=== PATIENT | female | born 1985 | race Caucasian/White ===

== ENCOUNTER 2022-08-24 20:25 | Emergency (ER) | payer OTHER ==
--- OUTSIDE RECORDS SUMMARY | 2022-08-24 20:29 | XMS REPORT | Continuity of Care Document ---
:1985 Author Organization [facility] t Address [address] [facility] [address] [place] [address] Care Team Providers Name Role Phone JING SPARROW Primary Care Physician Unavailable Jing Sparrow Attending Clinician Unavailable DELVIN BURKS Attending Clinician Unavailable Adriana Jones Attending Clinician Lab, Ang - [place] Attending Clinician Unavailable ADRIANA SALMON Attending Clinician Unavailable SCOTT TENORIO Attending Clinician Unavailable SCOTT TENORIO Attending Clinician Unavailable Scott Tenorio MD Attending Clinician UNKNOWN, ATTENDING Attending Clinician Unavailable Unknown, Attending Attending Clinician Unavailable Doctor Unassigned, [place] Attending Clinician Unavailable GUILLERMO VAIL M.D., GUILLERMO Franklin M.D. Attending Clinician Unavailable OSEI ORELLANA Admitting Clinician Unavailable GUILLERMO VAIL M.D., GUILLERMO Franklin Admitting Clinician Josefina garcia Payers Payer Name Policy Type Policy Number Effective Date Expiration Date S [facility] MEDIC[facility] PART A [id number] 2014 \T\ B 00:00:00 [facility] [id number] 2016 MEDICAID 00:00:00 MEDICAID OF [place] [id number] 2015 2021 00:00:00 00:00:00 Problems Condition Condition Condition Status Onset Resolution Last Treating Co mments Source Name Details Category Date Date Treatment Clinician Date Prediabete Prediabete Disease Active U rachana s s 6 ity of 00:00: [address] Hyperinsul Hyperinsul Disease Active U nivers inemia inemia 6- ity of 00:00: [place] 00 [facility] Morbid Morbid Disease Active Univers obesity obesity 10-24 ity of with BMI with BMI 00:00: [place] of of 00 Medical 50.0-59.9, 50.0-59.9, Br anch adult adult No known No known Disease Unive rs active active ity of problems problems [facility] [place] [facility] Reflux Reflux Diagnosis Active Common esophagiti esophagiti Sp fredi s s - [facility] Hyperlipid Hyperlipid Problem Active C ommon emia, emia, Spirit unspecifie unspecifie - [facility] d [facility] hyperlipid hyperlipid Teri [facility] emia type emia type [facility] Essential Essential Problem Active Com mon (primary) (primary) Spir it hypertensi hypertensi - [facility] on on [facility] Bipolar Bipolar Problem Active Common affective affective Spir it disorder, disorder, - CH I current current St episode episode [facility] mixed, mixed, Medical without without Center psychotic psychotic features features Cigarette Cigarette Problem Active Com mon nicotine nicotine Spirit dependence dependence - [facility] without without St complicati complicati Teri kes on on [facility] Schizo Schizo Problem Active Common affective affective Spir it schizophre schizophre - [facility] cee cee [facility] Obesities, Obesities, Problem Active C ommon morbid morbid Spirit - [facility] Allergies, Adverse Reactions, Alerts Allergy Allergy Status Severity Reaction(s) Onset Inactive Treating Comm ents Source Name Type Date Date Clinician NO KNOWN Drug Active Univers ALLERGIE Class ity of S [facility] [place] [facility] Social History Social Habit Start Date Stop Date Quantity Comments Source Alcohol intake 2021-10-24 2021-10-24 Ex-drinker University 00:00:00 00:00:00 (finding) [facility] [place] [facility] Exposure to 2021-10-10 2021-10-20 Not sure [facility] SARS-CoV-2 (event) 00:00:00 08:59:00 [facility] [place] [facility] Cigarettes smoked 2021-09-23 2021-09-23 Univers ity of current (pack per 00:00:00 00:00:00 ) - Reported Branch Cigarette 2021-09-23 2021-09-23 University of pack-years 00:00:00 00:00:00 [facility] [place] [facility] Tobacco use and 2021-09-23 2021-09-23 Never used Universit y of exposure 00:00:00 00:00:00 [facility] [place] [facility] Sex Ass[birth year] At [birth year] Universit y of 00:00:00 00:00:00 [facility] [place] [facility] Smoking Status Start Date Stop Date Source Current every day smoker 2021-09-23 00:00:00 Uni versity of [facility] [place] [facility] Medications Ordered Filled Start Stop Current Ordering Indication Dosage Frequency Signature Comments Components Source Medication Medication Date Date Medication? Clinician (SIG) Name Name METOPROLOL Yes 50mg Take 50 mg U nivers SUCCINATE 5-27 by mouth. ity o f ORAL 08:17: [address] METOPROLOL Yes 50mg Take 50 mg U nivers SUCCINATE 5-27 by mouth. ity o f ORAL 08:17: [address] METOPROLOL Yes 50mg Take 50 mg U nivers SUCCINATE 5-27 by mouth. ity o f ORAL 08:17: [address] METOPROLOL Yes 50mg Take 50 mg U nivers SUCCINATE 5-27 by mouth. ity o f ORAL 08:17: [address] predniSONE 2021-0 Yes [id number] 4 per day Univers 10 mg 5-20 for 3 ity of tablet 00:00: days, 3 [place] 00 per day Medical for 3 Branch days, 2 per day for 3 day, 1 per day for 3 days, 1/2 per day for 3 days predniSONE 2021-0 Yes [id number] 4 per day Univers 10 mg 5-20 for 3 ity of tablet 00:00: days, 3 [place] 00 per day Medical for 3 Branch days, 2 per day for 3 day, 1 per day for 3 days, 1/2 per day for 3 days predniSONE 2021-0 Yes [id number] 4 per day Univers 10 mg 5-20 for 3 ity of tablet 00:00: days, 3 [place] 00 per day Medical for 3 Branch days, 2 per day for 3 day, 1 per day for 3 days, 1/2 per day for 3 days predniSONE 2021-0 Yes [id number] 4 per day Univers 10 mg 5-20 for 3 ity of tablet 00:00: days, 3 [place] 00 per day Medical for 3 Branch days, 2 per day for 3 day, 1 per day for 3 days, 1/2 per day for 3 days risperiDONE 2-0 Yes Univer s 3 mg tablet 5-08 ity of 00:00: [place] 00 Medical Branch risperiDONE 2-0 Yes Univer s 3 mg tablet 5-08 ity of 00:00: [place] 00 Medical Branch risperiDONE 2-0 Yes Univer s 3 mg tablet 5-08 ity of 00:00: [place] 00 Medical Branch risperiDONE 2-0 Yes Univer s 3 mg tablet 5-08 ity of 00:00: [place] 00 Medical Branch RISPERDAL 2021-0 Yes Univers CONSTA 50 5-04 ity of mg/2 mL 00:00: [place] injection 00 Medical Branch RISPERDAL 2021-0 Yes Univers CONSTA 50 5-04 ity of mg/2 mL 00:00: [place] injection 00 Medical Branch RISPERDAL 2021-0 Yes Univers CONSTA 50 5-04 ity of mg/2 mL 00:00: [place] injection 00 Medical Branch RISPERDAL 2021-0 Yes Univers CONSTA 50 5-04 ity of mg/2 mL 00:00: [place] injection 00 Medical Branch divalproex 2022-0 Yes 500mg Take 500 Un [place] [facility] 500 mg 4-14 mg by ity of 24 hr 00:00: mouth 2 [place] tablet 00 (two) Medical times Branch daily. divalproex 2022-0 Yes 500mg Take 500 Un [place] [facility] 500 mg 4-14 mg by ity of 24 hr 00:00: mouth 2 [place] tablet 00 (two) Medical times Branch daily. divalproex 2022-0 Yes 500mg Take 500 Un [place] [facility] 500 mg 4-14 mg by ity of 24 hr 00:00: mouth 2 [place] tablet 00 (two) Medical times Branch daily. divalproex 2022-0 Yes 500mg Take 500 Un [place] ER 500 mg 4-14 mg by ity of 24 hr 00:00: mouth 2 [place] tablet 00 (two) Medical times Branch daily. risperiDONE 2-0 Yes TAKE 1 Univ ers 1 mg tablet 4-13 TABLET BY ity of 00:00: MOUTH [place] 00 DAILY AT 3 Medical PM Branch risperiDONE 2-0 Yes TAKE 1 Univ ers 1 mg tablet 4-13 TABLET BY ity of 00:00: MOUTH [place] 00 DAILY AT 3 Medical PM Branch risperiDONE 2-0 Yes TAKE 1 Univ ers 1 mg tablet 4-13 TABLET BY ity of 00:00: MOUTH [place] 00 DAILY AT 3 Medical PM Branch risperiDONE 2-0 Yes TAKE 1 Univ ers 1 mg tablet 4-13 TABLET BY ity of 00:00: MOUTH [place] 00 DAILY AT 3 Medical PM Branch benztropine 2022-0 Yes TAKE 1 Univ ers 1 mg tablet 4-12 TABLET BY ity of 00:00: MOUTH 00 EVERY Medical MORNING Branch AND 2 TABLETS BY MOUTH EVERY NIGHT AT BEDTIME benztropine 2-0 Yes TAKE 1 Univ ers 1 mg tablet 4-12 TABLET BY ity of 00:00: MOUTH 00 EVERY Medical MORNING Branch AND 2 TABLETS BY MOUTH EVERY NIGHT AT BEDTIME benztropine 2-0 Yes TAKE 1 Univ ers 1 mg tablet 4-12 TABLET BY ity of 00:00: MOUTH 00 EVERY Medical MORNING Branch AND 2 TABLETS BY MOUTH EVERY NIGHT AT BEDTIME benztropine 2-0 Yes TAKE 1 Univ ers 1 mg tablet 4-12 TABLET BY ity of 00:00: MOUTH 00 EVERY Medical MORNING Branch AND 2 TABLETS BY MOUTH EVERY NIGHT AT BEDTIME ziprasidone 2022-0 Yes TAKE 1 Univ ers 20 mg 4-08 CAPSULE BY ity of capsule 00:00: MOUTH [place] 00 EVERY Medical MORNING Branch WITH A MEAL risperiDONE 2-0 Yes 4mg Take 4 mg U nivers 4 mg tablet 4-08 by mouth ity of 00:00: at [place] [address] bedtime. Medical Branch ziprasidone 2022-0 Yes TAKE 1 Univ ers 20 mg 4-08 CAPSULE BY ity of capsule 00:00: MOUTH [place] 00 EVERY Medical MORNING Branch WITH A MEAL risperiDONE 2-0 Yes 4mg Take 4 mg U nivers 4 mg tablet 4-08 by mouth ity of 00:00: at [place] [address] bedtime. Medical Branch ziprasidone 2022-0 Yes TAKE 1 Univ ers 20 mg 4-08 CAPSULE BY ity of capsule 00:00: MOUTH [place] 00 EVERY Medical MORNING Branch WITH A MEAL risperiDONE 2022-0 Yes 4mg Take 4 mg U nivers 4 mg tablet 4-08 by mouth ity of 00:00: at [place] [address] bedtime. Medical Branch ziprasidone 2022-0 Yes TAKE 1 Univ ers 20 mg 4-08 CAPSULE BY ity of capsule 00:00: MOUTH [place] 00 EVERY Medical MORNING Branch WITH A MEAL risperiDONE 2021-0 Yes 4mg Take 4 mg U nivers 4 mg tablet 4-08 by mouth ity of 00:00: at [place] [address] bedtime. Medical Branch Omeprazole Omeprazole Yes Jing TAKE 1 Common [place] CAPSULE BY Spirit MOUTH ONCE - [facility] DAILY. [facility] Trazodone Trazodone Yes Jing 2 tablet Common HCl HCl [place] at bedtime [facility] Benztropine Benztropine Yes Jing TK 1 T PO Common Mesylate Mesylate [place] QAM AND [address] [facility] Risperidone Risperidone Yes Jing TK 1 T PO Common [place] QHS [facility] Depakote Depakote Yes Jing 1 tablet Co mmon [place] [facility] Geodon Geodon Yes Jing 1 capsule Commo n [place] with food [facility] Lisinopril- Lisinopril- Yes Jing 1 tablet Common Hydrochloro Hydrochloro [place] [facility] thiazide thiazide [facility] Vital Signs Vital Name Observation Time Observation Value Comments Source Systolic blood 2021-09-23 13:18:00 149 mm[Hg] Univer sity pressure [facility] [place] [facility] Diastolic blood 2021-09-23 13:18:00 90 mm[Hg[facility] 2021-09-23 13:17:00 109 /min [facility] Body temperature 2021-09-23 13:17:00 36.39 Tiffanie [facility] Body height 2021-09-23 13:17:00 167.6 cm [facility] Body weight 2021-09-23 13:17:00 160.528 kg [facility] BMI 2021-09-23 13:17:00 57.12 kg/m2 [facility] Oxygen saturation in 2021-09-23 13:17:00 97 /min [facility] Arterial blood by [facility] [place] [facility] Pulse oximetry Branch Procedures This patient has no known procedures. Encounters Start End Encounter Admission Attending Care Care Encounter Source Date/Time Date/Time Type Type Clinicians Facility Department ID 2021 Outpatient INGRID Sparrow [facility] [id number] Common 11:01:31 Jing [id number] [facility] 2021 Outpatient INGRID Sparrow [facility] [id number] Common 11:00:46 Jing [id number] [facility] 2021-12-20 2021-12-20 Outpatient R ADUM, [facility] [id number] Univers 08:30:00 08:30:00 DELVIN [facility] 2021-11-15 2021-11-15 Outpatient R ADUM, [facility] [id number] Univers 08:00:00 08:00:00 [facility] 2021-10-28 2021-10-28 [facility]phone [facility] [id number] Univers 00:00:00 00:00:00 Adriana A HEALTH [id number] i ty of [place] [id number] Sascha as MARLA?BLEA [id number] [address] OFFICE [facility] 2021-10-24 2021-10-24 Telephone [facility] [id number] Univers 00:00:00 00:00:00 Adriana A HEALTH [id number] i ty of [place] [id number] Sascha as MARLA?BLEA [id number] [address] 2021-10-20 2021-10-20 [employer] Lab, Ang - Db [facility] [id number] Univers 09:00:00 09:15:00 Visit Luis Antonio Adriana A HEALTH [id number] ity of [place] [id number] Sascha as MARLA?BLEA [id number] [facility] [address] [facility] [address] OFFICE [facility] 2021-10-20 2021-10-20 Outpatient R LUIS ANTONIO, [facility] [id number] Univers 09:00:00 09:00:00 ADRIANA ity [facility] 2021-09-23 2021-09-23 [facility] [id number] Univers 08:00:00 09:23:45 ADRIANA arndt [facility] 2021-09-23 2021-09-23 Office [facility] [id number] Univers 08:00:00 08:30:00 Visit Adriana Potter [facility] [id number] i [facility] [id number] Sascha as MARLA?BLEA [id number] [facility] [address] [place] [facility] OFFICE [facility] 2021-09-23 2021-09-23 Outpatient R LUIS ANTONIO [facility] [id number] Univers 08:00:00 08:00:00 ADRIANA arndt [facility] 2021-09-23 2021-09-23 Outpatient R LUIS ANTONIO [facility] [id number] Univers 08:00:00 08:00:00 ADRIANA arndt [facility] 2021-09-16 2021-09-16 Outpatient SCOTT ALVAREZ [facility] [id number] Univers 08:00:00 08:41:21 JONASCOTT Herrera [facility] 2021-09-16 2021-09-16 Office [facility] [id number] Univers 08:00:00 08:41:21 Visit [facility] [id number] ity of [place] [id number] Sascha as MARLA?BLEA [id number] [facility] [address] [facility] OFFICE [facility] 2021-09-16 2021-09-16 Outpatient SCOTT ALVAREZ [facility] [id number] Univers 08:00:00 08:41:21 JONASCOTT Herrera [facility] 2021-09-16 2021-09-16 Outpatient SCOTT ALVAREZ [facility] [id number] Univers 08:00:00 08:00:00 JONASCOTT Herrera flavio [facility] 2021-09-15 2021-09-15 Telephone Jona, [facility] [id number] Univers 00:00:00 00:00:00 [facility] [id number] ity of [place] [id number] Sascha as MARLA?BLEA [id number] Ut sharan [place] [id number] [place] [facility] 2021-03-10 2021-03-10 Outpatient R UNKNOWN, [facility] [id number] Univers 10:32:07 23:59:00 ATTENDING ity of [facility] 2021-03-10 2021-03-10 Hospital Unknown, [facility] [id number] Univers 10:32:07 23:59:00 Encounter Attending MORELIA [id number] ity [facility] [id number] [place] [id number] [facility] 850 Branch 2021-03-10 2021-03-10 Orders Doctor NARCISA [id number] Univers 00:00:00 00:00:00 Only Unassigned, JENNA [id number] ity of [place] [facility] [id number] Sascha as [phone] [facility] 009 Branch 2019-09-29 2019-09-29 Outpatient [facility] [id number] Common 16:40:00 16:40:[address] [facility] [address] [facility] 2019-05-19 2019-05-19 Outpatient [facility] [id number] Common 11:40:00 11:40:[address] [facility] [address] [facility] 2018-11-19 2018-11-19 Outpatient [facility] [id number] Common 11:20:00 11:20:[address] [facility] [address] [facility] 2018-11-18 2018-11-18 Outpatient [facility] [id number] Common 13:00:00 13:00:[address] [facility] [address] [facility] Results Test Description Test Time Test Comments Results Result Comments Source RPR, Qual 2017-02-08 14:16:00 Test Item Value Reference Range Interpretation Comme nts RPR (test code = RPR) Non-Reactive Non-Reactive N Thyroid Stimulating Hormone (TSH)2017-02-08 08:12:00 Test Item Value Reference Range Interpretation Comments TSH (test code = TSH) 2.14 mIU/mL 0.270-4.200 N Lipid [id number] 08:01:00 Test Item Value Reference Range Interpretation Comments Cholesterol (test 262 mg/dL 0-200 H code = CHOL) Triglycerides (test 115 mg/dL 9-200 N code = TRIG) HDL (test code = 68 mg/dL 50-60 H HDL) Chol/HDL (test code 3.9 Ratio 0.0-4.4 N = CHOLPHDL) LDL, Calculated 171 0-130 H (NOTE)RISK O F HEART (test code = LDLC) DISEASEPu blished by [place] Islander Heart AssociationAnal yte Optimal Boderli ne Increased RiskC HOL <200 200-239 >240TRI G <150 150-199 >200HD L Male: >60 <40HDL Fema le: >60 <50LDL <100 13 0-159 >160LDL NEAR OP TIMAL IS 100-129 VLDL (test code = 23 mg/dL 5-40 N VLDL) LDL/HDL (test code = 3 LDLPHDL) BHCG, Serum, [id number] 07:42:00 Test Item Value Reference Range Interpretation Comments Preg Qual [Se] (test code = BSHCG) Negative Negative N Comprehensive Metabolic [id number] 23:03:00 Test Item Value Reference Range Interpretation Comments Sodium (test code = 135 mmol/L 135-145 N NA) Potassium (test 4.2 mmol/L 3.5-5.1 N code = K) Chloride (test code 101 mmol/L 98-105 N = CL) Carbon Dioxide 22 mmol/L 22-29 N (test code = CO2) Glucose (test code 104 mg/dL 70-115 N = GLU) Blood Urea Nitrogen 12 mg/dL 6-20 N (test code = BUN) Creatinine (test 0.9 mg/dL 0.5-0.9 N code = CREAT) Calcium (test code 10.2 mg/dL 8.3-10.5 N = CA) Prot Total (test 7.8 g/dL 6.4-8.3 N code = TP) Albumin (test code 4.5 g/dL 3.5-5.2 N = ALB) A/G Ratio (test 1.4 Ratio code = AGRATIO) Globulin (test code 3.3 2.9-3.1 H = GLOB) Bili Total (test 0.4 mg/dL 0.1-0.9 N code = TBIL) Alk Phos (test code 109 U/L 35-104 H = APHOS) AST (test code = 23 U/L 1-32 N AST) ALT (test code = 14 U/L 1-33 N ALT) BUN/Creatinine 13.3 Ratio (test code = BCRATIO) Anion Gap (test 12 mmol/L 7-16 N code = AGAP) Estimated GFR (test >60 eGFR (es timated code = GFR) mL/min/1.73m2 Glomerular [place] tration Rate) is an est imated value,calculate d from the patient's s minerva creatinine usin g the MDRD equation.I t is NOT the patient 's actual GFR. The eGFR provides a more clinicallyusefu l measure of kidn ey disease than se rum creatinine alone.This calculation hal es sex and race into account, if the informationis provided. If th e race is not provided , and the patient isAfrican-Ameri can, multiply by 1.2 12. If sex is not prov ided, and thepatient is female, multipl y by 0.742. Results for patients <18 ye ars ofage have not been validated by th e MDRD study and shoul d be interpretedwith caution.eGFR Re sult Interpretation: eGFR > or = 60 is in t he Normal RangeeGF R < 60 may mean kidney diseaseeGFR < 1 5 may mean kidney failureRange s recommended by the National Kidney Foundation,http ://nkd ep.nih.gov CBC with [id number] 22:50:00 Test Item Value Reference Range Interpretation Comments WBC (test code = WBC) 12.8 K/cumm 4.4-10.5 H RBC (test code = RBC) 4.36 M/cumm 3.75-5.20 N Hemoglobin (test code = HGB) 13.7 gm/dL 12.2-14.8 N Hematocrit (test code = HCT) 41.9 % 36.5-44.4 N MCV (test code = MCV) 95.9 fL 80-100 N MCH (test code = MCH) 31.5 pg 27.0-32.5 N MCHC (test code = MCHC) 32.8 g/dL 32.0-37.5 N RDW (test code = RDW) 13.2 % 11.5-14.5 N Platelet Count (test code = 342 K/cumm 140-440 N PLTCT) MPV (test code = MPV) 7.2 fL Diff Method (test code = DIFFM) Auto Neutrophil (test code = NEUT) 72.4 % 36-70 H Lymphocyte (test code = LYMPH) 21.2 % 12-44 N Monocyte (test code = MONO) 5.2 % 0-11 N Eosinophil (test code = EOS) 1.0 % 0-7 N Basophil (test code = BASO) 0.2 % 0-2 N Neutro Abs (test code = ANEUT) 9.3 K/cumm 1.6-7.4 H Lymph Abs (test code = ALYMPH) 2.7 K/cumm 0.5-4.6 N Hawkins Abs (test code = AMONO) 0.7 K/cumm 0.0-1.2 N Eos Abs (test code = AEOS) 0.13 K/cumm 0.00-0.74 N Baso Abs (test code = ABASO) 0.0 K/cumm 0.00-0.21 N
[2022-08-24] MEDS ORDERED: WATER FOR INJ,STERILE 10 ML ONE (20:42)
[2022-08-24] MEDS ORDERED: ZIPRASIDONE MESYLA 20 MG/VIAL IM ONE (20:42)
[2022-08-24 21:16] LABS: Absolute Lymphocytes (CBC) 3.3 K/uL (0.7-4.9); Hematocrit 37.8 % (36.0-45.0); Lymphocytes % 23.2 % (15.3-44.8); MCV 93.4 fL (80-100); MPV 8.4 fL (7.6-11.3); RBC Red Blood Cell Count 4.05 M/uL (3.86-4.86)
[2022-08-24 21:25] LABS: Protime INR 0.92
[2022-08-24 21:38] LABS: ALT/SGPT 37 U/L (13-56); Alkaline Phosphatase 114 U/L (45-117); BUN Blood Urea Nitrogen 14 mg/dL (7-18); Bicarbonate 27 mEq/L (21-32); Bilirubin Total 0.2 mg/dL (0.2-1.0); Glomerular Filtration Rate 96 ml/min (=/>90); Glucose Level 102 mg/dL (74-106); Protein, Total 7.1 g/dL (6.4-8.2); Sodium Level 134 mEq/L (136-145); Valproic Acid (Depakene) Level 30.2 mcg/mL (50.0-100.0)
[2022-08-24 21:41] LABS: AST/SGOT 36 U/L (15-37); Bilirubin Direct < 0.1 mg/dL (0-0.2); Potassium 3.7 mEq/L (3.5-5.1)
[2022-08-24] MEDS ORDERED: LORazepam 2 MG/ML VIAL ONE (21:41)
[2022-08-24] MEDS ORDERED: NA CHLORIDE 0.9% 1,000 ML ONE (21:41)
--- NOTE | 2022-08-25 05:18 | EDPHYS ---
Physician Documentation [facility] Name: Maddi Retana Age: 37 yrs Sex: Female : 1985 Arrival Date: 08/24/2022 Time: 20:25 Bed 7 Private MD: ED Physician Vernon Reyes HPI: 08/24 23:01 This 37 yrs old Female presents to ER via EMS with complaints of PSYCHOSIS/ sg INSOMNIA. 23:01 The patient presents to the emergency department with anxiety, depression. Onset: The sg symptoms/episode began/occurred 2 day(s) ago. Past psychiatric history: Prior diagnosis: bipolar disorder, depression, schizophrenia. Associated signs and symptoms: Pertinent positives; hallucinations. Severity of symptoms: At their worst the symptoms were mild moderate in the emergency department the symptoms are unchanged. The patient has not experienced similar symptoms in the past. 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 - Social history:: Smoking status: unknown. - Family history:: not pertinent. ROS: 23:01 Constitutional: Negative for fever, chills, and weight loss, Eyes: Negative for injury, sg pain, redness, and discharge, ENT: Negative for injury, pain, and discharge, Neck: Negative for injury, pain, and swelling, Cardiovascular: Negative for chest pain, palpitations, and edema, Respiratory: Negative for shortness of breath, cough, wheezing, and pleuritic chest pain, Abdomen/GI: Negative for abdominal pain, nausea, vomiting, diarrhea, and constipation, Back: Negative for injury and pain, : Negative for injury, bleeding, discharge, and swelling, MS/Extremity: Negative for injury and deformity, Skin: Negative for injury, rash, and discoloration, Psych: Negative for depression, anxiety, suicide ideation, homicidal ideation, and hallucinations, Allergy/Immunology: Negative for hives, rash, and allergies, Endocrine: Negative for neck swelling, polydipsia, polyuria, polyphagia, and marked weight changes, Hematologic/Lymphatic: Negative for swollen nodes, abnormal bleeding, and unusual bruising. 23:01 Neuro: Positive for 23:01 Psych: Positive for anxiety, insomnia. Exam: 23:01 Constitutional: This is a well developed, well nourished patient who is awake, alert, sg and in no acute distress. Head/Face: Normocephalic, atraumatic. Eyes: Pupils equal round and reactive to light, extra-ocular motions intact. Lids and lashes normal. Conjunctiva and sclera are non-icteric and not injected. Cornea within normal limits. Periorbital areas with no swelling, redness, or edema. ENT: Nares patent. No nasal discharge, no septal abnormalities noted. Tympanic membranes are normal and external auditory canals are clear. Oropharynx with no redness, swelling, or masses, exudates, or evidence of obstruction, uvula midline. Mucous membranes moist. Neck: Trachea midline, no thyromegaly or masses palpated, and no cervical lymphadenopathy. Supple, full range of motion without nuchal rigidity, or vertebral point tenderness. No Meningismus. Chest/axilla: Normal chest wall appearance and motion. Nontender with no deformity. No lesions are appreciated. Cardiovascular: Regular rate and rhythm with a normal S1 and S2. No gallops, murmurs, or rubs. Normal PMI, no JVD. No pulse deficits. Respiratory: Lungs have equal breath sounds bilaterally, clear to auscultation and percussion. No rales, rhonchi or wheezes noted. No increased work of breathing, no retractions or nasal flaring. Abdomen/GI: Soft, non-tender, with normal bowel sounds. No distension or tympany. No guarding or rebound. No evidence of tenderness throughout. Back: No spinal tenderness. No costovertebral tenderness. Full range of motion. Skin: Warm, dry with normal turgor. Normal color with no rashes, no lesions, and no evidence of cellulitis. MS/ Extremity: Pulses equal, no cyanosis. Neurovascular intact. Full, normal range of motion. Neuro: Awake and alert, GCS 15, oriented to person, place, time, and situation. Cranial nerves II-XII grossly intact. Motor strength 5/5 in all extremities. Sensory grossly intact. Cerebellar exam normal. Normal gait. 23:01 Psych: Behavior/mood is anxious, Affect is animated, Oriented to person, place, time, Patient has no thoughts/intents to harm self or others. Judgement / Insight is normal. Memory is normal. Delusions/hallucinations are present and described as TALKS TO PEOPLE NOT THERE. 23:18 ECG was reviewed by the Attending Physician. sg Vital Signs: 20:32 BP 150 / 83; Pulse 93; Resp 18 S; Temp 98.6(O); Pulse Ox 95% on R/A; Weight 156.49 kg as6 (R); Height 5 ft. 6 in. (R); Pain 0/10; 22:00 BP 137 / 81; Pulse 91; Resp 18 S; Pulse Ox 97% on R/A; as6 23:16 BP 144 / 67; Pulse 97; Resp 20 S; Pulse Ox 94% on 2 lpm NC; as6 08/25 00:01 BP 156 / 84; Pulse 88; Resp 20 S; Pulse Ox 97% on 2 lpm NC; as6 01:16 BP 139 / 80; Pulse 91; Resp 18 S; Pulse Ox 99% on R/A; as6 02:30 BP 153 / 86; Pulse 90; Resp 16; Pulse Ox 98% on 2 lpm NC; pf1 03:30 BP 143 / 92; Pulse 89; Resp 16; Pulse Ox 98% on 2 lpm NC; pf1 04:30 BP 146 / 85; Pulse 87; Resp 16; Pulse Ox 99% on 2 lpm NC; pf1 05:16 BP 123 / 73; Pulse 96; Resp 16 S; Pulse Ox 95% on 2 lpm NC; as7 06:46 BP 137 / 91; Pulse 95; Resp 18; Pulse Ox 98% ; Pain 0/10; pf1 09:29 BP 171 / 88; Pulse 89; Resp 18; Pulse Ox 98% on R/A; ph 13:04 BP 154 / 96; Pulse 89; Resp 16; Pulse Ox 99% ; bp 08/24 20:32 Body Mass Index 55.68 (156.49 kg, 167.64 cm) as6 08/24 20:32 Pain Scale: Adult as6 06:46 Pain Scale: Adult pf1 MDM: 08/24 20:33 Patient medically screened. sg 23:11 Differential diagnosis: drug withdrawal. acute psychotic break, depression, psychosis sg secondary to non-compliance. Data reviewed: vital signs, nurses notes, lab test result(s), EKG. Consideration of Admission/Observation Escalation of care including admission/observation considered. I considered the following discharge prescriptions or medication management in the emergency department Medications were administered in the Emergency Department. See MAR. Test considered but Not performed:. Test considered but Not performed: CT: NO CT BRAIN WO. Care significantly affected by the following chronic conditions: Hypertension, SCHIZO, DEPRESSION, BIPOLAR. 08/24 20:34 Order name: Acetaminophen; Complete Time: 22:50 [facility] 08/24 20:34 Order name: Basic Metabolic Panel; Complete Time: 22:50 [facility] 08/24 20:34 Order name: CBC with Diff; Complete Time: 22:50 [facility] 08/24 20:34 Order name: ETOH Level; Complete Time: 22:50 [facility] 08/24 20:34 Order name: Hepatic Function; Complete Time: 22:50 [facility] 08/24 20:34 Order name: PT-INR; Complete Time: 22:50 08/24 20:34 Order name: Ptt, Activated; Complete Time: 22:50 [facility] 08/24 20:34 Order name: Salicylate; Complete Time: 22:50 [facility] 08/24 20:34 Order name: Depakote; Complete Time: 22:50 [facility] 08/24 20:34 Order name: EKG; Complete Time: 20:35 [facility] 08/24 20:34 Order name: EKG - Nurse/Tech; Complete Time: 23:13 [facility] 08/24 20:34 Order name: IV Saline Lock; Complete Time: 21:38 08/24 20:34 Order name: Labs collected and sent; Complete Time: 21:38 [facility] 08/24 20:34 Order name: Suicide Screening ([place]); Complete Time: 21:38 gs EC:18 Rate is 94 beats/min. Rhythm is regular. QRS [place] is Normal. WA interval is prolonged sg at 234 msec. QRS interval is normal. QT interval is normal. No Q waves. T waves are Normal. No ST changes noted. Clinical impression: NSR w/ Non-specific ST/T Changes and No evidence of ischemia. Interpreted by me. Reviewed by me. Administered Medications: 20:40 Drug: Geodon IM 20 mg Route: IM; Site: right deltoid; as6 21:40 Follow up: Response: No adverse reaction; Marked relief of symptoms pf1 21:38 Drug: Ativan IVP 2 mg Route: IVP; Site: left hand; as6 22:30 Follow up: Response: No adverse reaction; Marked relief of symptoms pf1 21:38 Drug: NS 0.9% IV 1000 ml Route: IV; Rate: 1 bolus; Site: left hand; as6 22:30 Follow up: Response: No adverse reaction; Marked relief of symptoms; IV Status: pf1 Completed infusion; IV Intake: 1000ml Disposition Summary: 08/25/22 05:17 Discharge Ordered Location: Home sg Problem: new sg Symptoms: have improved sg Condition: Stable sg Diagnosis - Bipolar disorder, unspecified sg - Schizophrenia, unspecified sg - Insomnia sg Followup: sg - With: Private Physician - When: 2 - 3 days - Reason: Recheck today's complaints, Continuance of care, Re-evaluation by your physician Followup: sg - With: - When: 2 - 3 days - Reason: Recheck today's complaints, Re-evaluation by your physician Discharge Instructions: - Discharge Summary Sheet sg - Insomnia sg - Schizophrenia sg - Supporting Someone With Bipolar Disorder sg - Supporting Someone With Schizophrenia sg Forms: - Medication Reconciliation Form sg - Thank You Letter sg - Antibiotic Education sg - Prescription Opioid Use sg Prescriptions: - Hydroxyzine HCl 50 mg Oral Tablet - take 1 tablet by ORAL route every 8 hours As needed; 20 tablet; Refills: 0, sg Product Selection Permitted - Flagyl 500 mg Oral Tablet - take 1 tablet by ORAL route every 12 hours for 7 days; 14 tablet; Refills: 0, ms3 Product Selection Permitted Signatures: Dispatcher [employer] Vernon Andre MD MD cha Slawson, Ashby, RN RN as6 Kati richard RN pf1
--- NOTE | 2022-08-25 05:18 | ER ---
Nurse's Notes [facility] Name: Maddi Retana Age: 37 yrs Sex: Female : 1985 Arrival Date: 08/24/2022 Time: 20:25 Bed 7 Private MD: Diagnosis: Bipolar disorder, unspecified;Schizophrenia, unspecified;Insomnia Presentation: 08/24 20:32 Chief complaint: EMS states: family called EMS for pt to have a mental health as6 evaluation. pt has a history of bipolar and schizophrenia and appears to be having a manic episode. Coronavirus screen: At this time, the client does not indicate any symptoms associated with coronavirus-19. Ebola Screen: No symptoms or risks identified at this time. Onset of symptoms is unknown. 20:32 Method Of Arrival: EMS: [facility] as6 20:32 Acuity: ROBB 2 as6 22:06 Initial Sepsis Screen: Does the patient meet any 2 criteria? No. Patient's initial as6 sepsis screen is negative. Does the patient have a suspected source of infection? No. Patient's initial sepsis screen is negative. Risk Assessment: Do you want to hurt yourself or someone else? Patient reports no desire to harm self or others. 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 - Social history:: Smoking status: unknown. - Family history:: not pertinent. Screenin:10 [facility] ED Fall Risk Assessment (Adult) Score/Fall Risk Level 0 - 2 = Low Risk. Abuse as6 screen: Denies threats or abuse. Denies injuries from another. Nutritional screening: No deficits noted. Tuberculosis screening: No symptoms or risk factors identified. Assessment: 20:35 General: Appears obese, unkempt, Behavior is anxious, talking loud . Smells of body as6 odor . General: pt talking to self loudly, pt is active . Pain: Denies pain. Neuro: Level of Consciousness is awake, alert, Oriented to person, place, time. Cardiovascular: Capillary refill < 3 seconds Patient's skin is warm and dry. Respiratory: Respiratory effort is even, unlabored. 08/25 00:00 Reassessment: pt resting at this time. as6 01:00 Reassessment: Patient appears in no apparent distress at this time. Patient states pf1 symptoms have improved. Patient sleeping at this time.. 02:00 Reassessment: Patient appears in no apparent distress at this time. No changes from pf1 previously documented assessment. Patient states symptoms have improved. Patient sleeping at this time. lights dimmed. . 03:00 Reassessment: Patient appears in no apparent distress at this time. No changes from pf1 previously documented assessment. patient sleeping, lights dimmed Patient states symptoms have improved. 04:00 Reassessment: Patient appears in no apparent distress at this time. No changes from pf1 previously documented assessment. Patient states symptoms have improved. patient sleeping, lights dimmed, continue monitoring patient. 05:00 Reassessment: Patient appears in no apparent distress at this time. No changes from pf1 previously documented assessment. Patient states symptoms have improved. patient's sleeping, continue monitoring patient. . 07:00 Reassessment: RECD REPORT FROM TERRENCE VILLAR. 37YO WF P/W INSOMNIA. PT TBDC WHEN TRANSPORT bp AVAILABLE. 09:28 Reassessment: Patient appears in no apparent distress at this time. Pt asleep w/ equal ph and unlabored respirations, awaiting ride home for d/c. 13:04 Reassessment: FAMILY AT B/S FOR TRANSPORT. bp Vital Signs: 08/24 20:32 BP 150 / 83; Pulse 93; Resp 18 S; Temp 98.6(O); Pulse Ox 95% on R/A; Weight 156.49 kg as6 (R); Height 5 ft. 6 in. (R); Pain 0/10; 22:00 BP 137 / 81; Pulse 91; Resp 18 S; Pulse Ox 97% on R/A; as6 23:16 BP 144 / 67; Pulse 97; Resp 20 S; Pulse Ox 94% on 2 lpm NC; as6 08/25 00:01 BP 156 / 84; Pulse 88; Resp 20 S; Pulse Ox 97% on 2 lpm NC; as6 01:16 BP 139 / 80; Pulse 91; Resp 18 S; Pulse Ox 99% on R/A; as6 02:30 BP 153 / 86; Pulse 90; Resp 16; Pulse Ox 98% on 2 lpm NC; pf1 03:30 BP 143 / 92; Pulse 89; Resp 16; Pulse Ox 98% on 2 lpm NC; pf1 04:30 BP 146 / 85; Pulse 87; Resp 16; Pulse Ox 99% on 2 lpm NC; pf1 05:16 BP 123 / 73; Pulse 96; Resp 16 S; Pulse Ox 95% on 2 lpm NC; as7 06:46 BP 137 / 91; Pulse 95; Resp 18; Pulse Ox 98% ; Pain 0/10; pf1 09:29 BP 171 / 88; Pulse 89; Resp 18; Pulse Ox 98% on R/A; ph 13:04 BP 154 / 96; Pulse 89; Resp 16; Pulse Ox 99% ; bp 08/24 20:32 Body Mass Index 55.68 (156.49 kg, 167.64 cm) as6 08/24 20:32 Pain Scale: Adult as6 06:46 Pain Scale: Adult pf1 ED Course: 08/24 20:32 Patient arrived in ED. as6 20:32 Chito Olson, JIAN is Primary Nurse. as6 20:33 Vernon Reyes MD is Attending Physician. sg 20:34 Triage completed. as6 20:34 Arm band placed on. as6 20:40 Inserted saline lock: 22 gauge in left hand, using aseptic technique. Blood collected. pf1 22:10 Bed in low position. Call light in reach. Side rails up X2. as6 08/25 05:17 Chivo Werner MD is Referral Physician. sg 06:45 No provider procedures requiring assistance completed. pf1 06:46 IV discontinued, intact, bleeding controlled, No redness/swelling at site. Pressure pf1 dressing applied. Administered Medications: 08/24 20:40 Drug: Geodon IM 20 mg Route: IM; Site: right deltoid; as6 21:40 Follow up: Response: No adverse reaction; Marked relief of symptoms pf1 21:38 Drug: Ativan IVP 2 mg Route: IVP; Site: left hand; as6 22:30 Follow up: Response: No adverse reaction; Marked relief of symptoms pf1 21:38 Drug: NS 0.9% IV 1000 ml Route: IV; Rate: 1 bolus; Site: left hand; as6 22:30 Follow up: Response: No adverse reaction; Marked relief of symptoms; IV Status: pf1 Completed infusion; IV Intake: 1000ml Medication: 22:10 VIS not applicable for this client. as6 Intake: 22:30 IV: 1000ml; Total: 1000ml. pf1 Outcome: 08/25 05:17 Discharge ordered by . sg 13:05 Discharged to home ambulatory, with family. bp 13:05 Condition: stable 13:05 Discharge instructions given to patient, Instructed on discharge instructions, follow up and referral plans. medication usage, Demonstrated understanding of instructions, follow-up care, medications, Prescriptions given X 1. 13:06 Patient left the ED. bp Signatures: Vernon Reyes MD MD cha Hall, Patricia RN RN Hay Becerra RN RN Chito Grady RN RN as6 Kati richard RN RN pf1 Perri Wahl as7
[2022-08-25 13:11] VITALS: TEMP 98.6
[2022-08-25 13:31] VITALS: BP 154/96; O2SAT 99
--- NOTE | 2022-08-28 12:45 | EKG ---
Test Date: 2022-08-24 Test Time: 23:00:41 Digital Asset Coordinator: MEASUREMENT RESULTS: Intervals: Rate: 94 [place]: 234 QRSD: 84 QT: 356 QTc: 445 [place]: P: 52 OH: 234 QRS: 35 T: 43 INTERPRETIVE STATEMENTS: Sinus rhythm with 1st degree AV block Septal infarct, age undetermined Abnormal ECG Compared to ECG 02/07/2017 17:31:25 First degree AV block now present Sinus tachycardia no longer present Myocardial infarct finding still present Electronically Signed On 08-28-22 12:37:52 CDT by Brandon Reyes
== END 2022-08-25 13:06 | disposition home or self-care (01) ==
LOC: ER 20:25
DX: G47.00 Insomnia, unspecified (principal); F31.9 Bipolar disorder, unspecified; F20.9 Schizophrenia, unspecified; I10 Essential (primary) hypertension
CPT/HCPCS: 93005; 85025; 80048; 36415; 85610; 80076; 80164; 85730; J3486; J7030; G0480 ×3; 96361; 96372; 96374; 99284

== ENCOUNTER 2024-06-09 15:41 | Inpatient (IN) | payer OTHER ==
[2024-06-09 16:07] LABS: Absolute Basophils 0.1 K/uL (0-0.5); Absolute Eosinophils 0.2 K/uL (0-0.5); Absolute Lymphocytes (CBC) 3.4 K/uL (0.7-4.9); Absolute Monocytes 0.8 K/uL (0.1-1.3); Absolute Neutrophil 11.1 K/uL (1.8-8.0); Basophils % 0.7 % (0-1.3); Eosinophils % 1.2 % (0-4.4); Hematocrit 38.4 % (36.0-45.0); Hemoglobin 13.2 g/dL (12.0-15.0); MCH 31.7 pg (27.0-35.0); MCHC 34.3 g/dL (32.0-36.0); MCV 92.2 fL (80-100); MPV 7.9 fL (7.6-11.3); Monocytes % 4.9 % (3.3-12.3); Neutrophils % 71.2 % (41.7-73.7); Platelets 409 thou/uL (152-406); RBC Red Blood Cell Count 4.16 M/uL (3.86-4.86); Red Cell Distribution Width 13.3 % (12.1-15.2)
[2024-06-09 16:20] LABS: PT Prothrombin Time 9.7 SECONDS (9.4-12.5); PTT, Activated Partial Thromb 29.5 SECONDS (24.3-36.9); Protime INR 0.92
[2024-06-09 16:30] LABS: ALT/SGPT 26 U/L (13-56); AST/SGOT 19 U/L (15-37); Albumin/Globulin Ratio 0.7 (1.1-1.8); Alkaline Phosphatase 146 U/L (45-117); Anion Gap 9.1 mEq/L (5.0-15.0); BUN Blood Urea Nitrogen 12 mg/dL (7-18); Bicarbonate 25 mEq/L (21-32); Bilirubin Total 0.2 mg/dL (0.2-1.0); Globulin 4.2 g/dL (2.3-3.5); Glomerular Filtration Rate 89 ml/min (=/>90); Glucose Level 128 mg/dL (74-106); Potassium 3.1 mEq/L (3.5-5.1); Protein, Total 7.2 g/dL (6.4-8.2); Sodium Level 137 mEq/L (136-145)
[2024-06-09 16:31] LABS: Bilirubin Direct < 0.2 mg/dL (0-0.2)
[2024-06-09] MEDS ORDERED: activated charcoaL 25 GM/120 ML TUBE ONE (16:32)
[2024-06-09] MEDS ORDERED: ACTIVATED CHARCOAL 50 GM/240 ML ONE (16:35)
--- NOTE | 2024-06-09 18:02 | ER ---
Nurse's Notes [facility] Name: Maddi Retana Age: 39 yrs Sex: Female : 1985 Arrival Date: 06/09/2024 Time: 15:41 Bed 3 Private MD: Diagnosis: Intentional overdose of antipsychotics;Suicidal ideation Presentation: 06/09 16:08 Chief complaint: EMS states: pt overdose on her home medications , was found with empty iw prescription bottles , took her meds at approx 1430. Coronavirus screen: At this time, the client does not indicate any symptoms associated with coronavirus-19. Ebola Screen: No symptoms or risks identified at this time. Risk Assessment: Do you want to hurt yourself or someone else? Patient reports desire/thoughts of hurting themselves or someone else. Provider notified. Onset of symptoms was June 09, 2024. 16:08 Method Of Arrival: EMS: [facility] iw 16:08 Acuity: ROBB 2 iw 17:01 Initial Sepsis Screen: Does the patient meet any 2 criteria? HR > 90 bpm. Does the ap3 patient have a suspected source of infection? No. Patient's initial sepsis screen is negative. 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 - Infectious Disease History:: Denies. - Family history:: not pertinent. - Social history:: Smoking status: unknown. Screenin:52 Abuse screen: Denies threats or abuse. Nutritional screening: No deficits noted. ap3 Tuberculosis screening: No symptoms or risk factors identified. 17:01 [facility] ED Fall Risk Assessment (Adult) History of falling in the last 3 months, ap3 including since admission Yes- physiologic fall (2 pts) Confusion or Disorientation Yes (5 pts) Intoxicated or Sedated Yes (3 pts) Impaired Gait Yes (1 pt) Mobility Assist Device Used No (0 pt) Altered Elimination No (0 pt) Score/Fall Risk Level 3 or more points = High Risk Oriented to surroundings, Maintained a safe environment, Educated pt \\T\\ family on fall prevention, incl call for assistance when getting out of bed, Assessed \\T\\ reinforced patient's understanding of fall precautions, Provided non-skid footwear, Hourly rounding (assess needs \\T\\ fall precautionary measures) done, Used ambulatory aids as needed (educated on \\T\\ assisted with), Remained w/in arm's length of patient and in sight while toileting, Offered frequent toileting (1:1 observation), Remained with patient while ambulating. Assessment: 16:35 Reassessment: notified poison control, recommendation as follows, monitor for prolonged iw QTC, drowsiness, seizures, monitor for hyponatremia, nausea/vomiting, and headache for desmopressin , observation time will be 12 hours from time of arrival. 17:02 General: Appears comfortable, Behavior is cooperative. Pain: Denies pain. Neuro: Level ap3 of Consciousness is awake, alert, obeys commands, Oriented to person, place, time, patient is A/O X's 4, but also is hallucinating and "talking to angels" . Cardiovascular: Patient's skin is warm and dry. Respiratory: Airway is patent Respiratory effort is even, unlabored, Respiratory pattern is regular, symmetrical. 18:07 Reassessment: medication bottles placed in bag# [id number] and sent to security. trazadone ap3 100mg (empty), desmopressin 0.2mg (empty), trazadone 50mg (empty), hydroxyzine 50mg (empty), haloperidol 10mg (empty), olanzapine 10mg (empty), olanzapine 20mg (assorted pills inside). 19:14 General: Appears in no apparent distress. comfortable, Behavior is calm, cooperative. al5 Pain: Denies pain. Neuro: Level of Consciousness is awake, alert, obeys commands, Oriented to person, place, time, hallucinating, talking to non-people. Cardiovascular: Capillary refill < 3 seconds Patient's skin is warm and dry. Rhythm is sinus rhythm. Respiratory: Airway is patent Respiratory effort is even, unlabored, Respiratory pattern is regular, symmetrical. GI: No signs and/or symptoms were reported involving the gastrointestinal system. : No signs and/or symptoms were reported regarding the genitourinary system. EENT: No signs and/or symptoms were reported regarding the EENT system. Derm: Skin is intact, is healthy with good turgor, Skin is pink, warm \\T\\ dry. normal. Musculoskeletal: No signs and/or symptoms reported regarding the musculoskeletal system. 06/10 04:43 Reassessment: see [facility] for transfer documentation. al5 Overdose: 06/09 15:49 [place] Suicide Severity Screening: "In the past month, have you wished you were ap3 or wished you could go to sleep and not wake up?" Patient responds "yes." Based off client's responses, additional C-SSRS screening questions required. "In the past month, have you actually had any thoughts of killing yourself?" Patient responds "yes." "In your lifetime, have you ever done anything, started to do anything, or prepared to do anything to end your life?" Patient responds "yes.". Patient took trazodone, desmopressin, haloperidol, olanzapine, hydroxyzine. Overdose occurred occurred at 1430 today, 06/09/2024. 16:52 [place] Suicide Severity Screening: "In the past month, have you actually had any ap3 thoughts of killing yourself?" Patient responds "yes." Based off client's responses, additional C-SSRS screening questions required. Vital Signs: 16:08 BP 140 / 86; Pulse 105; Resp 18; Temp 98.5; Pulse Ox 98% on R/A; Weight 129.27 kg; iw Height 5 ft. 6 in. ; 16:49 BP 128 / 82; Pulse 106; Resp 18; Pulse Ox 98% on R/A; ap3 17:14 BP 124 / 73; Pulse 91; Resp 18; Pulse Ox 97% on R/A; ap3 17:53 BP 131 / 72; Pulse 90; Resp 19; Pulse Ox 96% on R/A; ap3 18:44 BP 138 / 89; Pulse 101; Pulse Ox 98% on R/A; ap3 19:00 BP 128 / 89; Pulse 98; Resp 18; Pulse Ox 100% on R/A; al5 16:08 Body Mass Index 46.00 (129.27 kg, 167.64 cm) iw ED Course: 15:49 Patient arrived in ED. iw 15:49 Nicholas Duque MD is Attending Physician. rt 16:11 Triage completed. iw 16:11 Initial lab(s) drawn, by me, sent to lab. Maintain EMS IV. Dressing intact. Good blood iw return noted. Site clean \\T\\ dry. Gauge \\T\\ site: 20 LAC. Flushed with 10 mL NS. 16:14 faxed chart to [facility]. bd 16:52 Arm band placed on right wrist. ap3 17:00 Siobhan Guerin, RN is Primary Nurse. ap3 17:02 Patient has correct armband on for positive identification. Bed in low position. Call ap3 light in reach. Side rails up X2. Provided Education on: medications prior to administration . Client placed on continuous cardiac and pulse oximetry monitoring. NIBP monitoring applied. quality assurance monitor on. Pulse ox on. 18:01 Selwyn Diego MD is Hospitalizing Provider. rt 18:15 No provider procedures requiring assistance completed. ap3 19:08 Report given to siobhan. ap3 19:18 Patient admitted, IV remains in place. al5 06/10 03:20 faxed pt clinical's to various facilities. kmf 03:[address] [facility]. kmf 04:11 pt was accepted to [facility]. Accepting Dr. Bianca Lovelace \\[id number]. Admin approval given kmf by Patricia Hernandez \\T\\[id number].[facility] ems to transfer pt. Administered Medications: 06/09 16:49 Drug: Actidose-Sorbitol PO Suspension 100 grams PO once Route: PO; ap3 17:00 Follow up: Response: Other ap3 Medication: 17:04 VIS not applicable for this client. ap3 Outcome: 18:02 Decision to Hospitalize by Provider. rt 19:55 Admitted to ER Hold. Please see [facility] for further documentation. al5 19:55 Condition: stable 19:55 Instructed on the need for admit, 06/10 04:47 Patient left the ED. al5 Signatures: Rocio Watkins Irene, RN RN iw Siobhan Guerin RN RN ap3 Nicholas Duque MD MD rt Tania Burns [facility] Siobhan Sheikh RN RN al5 Corrections: (The following items were deleted from the chart) 06/09 16:11 16:08 Chief complaint: EMS states: pt overdose on her home medications , was found with iw empty prescription bottles iw 16:52 16:52 [place] Suicide Severity Screening: "In the past month, have you actually had ap3 any thoughts of killing yourself?" Patient responds "yes." Based off client's responses, additional C-SSRS screening questions required. ap3
--- NOTE | 2024-06-09 18:02 | EDPHYS ---
Physician Documentation [facility] Name: Maddi Retana Age: 39 yrs Sex: Female : 1985 Arrival Date: 06/09/2024 Time: 15:41 Bed 3 Private MD: ED Physician Nicholas Duque HPI: 06/09 16:15 This 39 yrs old Female presents to ER via EMS with complaints of Overdose. rt 16:15 Patient presents to the ED with intentional overdose of trazodone, olanzapine, rt haloperidol. Her multiple empty pill bottles, patient cannot describe exactly how many medication she is taken she took any other medications. She reports feeling drowsy. She states that she took this due to her being suicidal. Symptoms are moderate in severity, no other aggravating or alleviating factors.. 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 - Infectious Disease History:: Denies. - Family history:: not pertinent. - Social history:: Smoking status: unknown. ROS: 16:15 Constitutional: Negative for fever, chills, and weight loss, Cardiovascular: Negative rt for chest pain, palpitations, and edema, Respiratory: Negative for shortness of breath, cough, wheezing, and pleuritic chest pain, Abdomen/GI: Negative for abdominal pain, nausea, vomiting, diarrhea, and constipation, MS/Extremity: Negative for injury and deformity, Skin: Negative for injury, rash, and discoloration, 16:15 Psych: Positive for suicide gesture, suicidal ideation, Exam: 16:15 Head/Face: Normocephalic, atraumatic. Chest/axilla: Normal chest wall appearance and rt motion. Nontender with no deformity. No lesions are appreciated. Cardiovascular: Regular rate and rhythm with a normal S1 and S2. No gallops, murmurs, or rubs. Normal PMI, no JVD. No pulse deficits. Respiratory: Lungs have equal breath sounds bilaterally, clear to auscultation and percussion. No rales, rhonchi or wheezes noted. No increased work of breathing, no retractions or nasal flaring. Abdomen/GI: Soft, non-tender, with normal bowel sounds. No distension or tympany. No guarding or rebound. No evidence of tenderness throughout. Skin: Warm, dry with normal turgor. Normal color with no rashes, no lesions, and no evidence of cellulitis. MS/ Extremity: Pulses equal, no cyanosis. Neurovascular intact. Full, normal range of motion. 16:15 Constitutional: The patient appears Drowsy but easily aroused, 16:15 ECG was reviewed by the Attending Physician. Vital Signs: 16:08 BP 140 / 86; Pulse 105; Resp 18; Temp 98.5; Pulse Ox 98% on R/A; Weight 129.27 kg; iw Height 5 ft. 6 in. ; 16:49 BP 128 / 82; Pulse 106; Resp 18; Pulse Ox 98% on R/A; ap3 17:14 BP 124 / 73; Pulse 91; Resp 18; Pulse Ox 97% on R/A; ap3 17:53 BP 131 / 72; Pulse 90; Resp 19; Pulse Ox 96% on R/A; ap3 18:44 BP 138 / 89; Pulse 101; Pulse Ox 98% on R/A; ap3 19:00 BP 128 / 89; Pulse 98; Resp 18; Pulse Ox 100% on R/A; al5 16:08 Body Mass Index 46.00 (129.27 kg, 167.64 cm) iw MDM: 15:49 Medical Screening Exam initiated rt 18:00 Differential diagnosis: Suicidal attempt, polypharmacy, intentional overdose. Data rt reviewed: vital signs, nurses notes, lab test result(s), EKG. Consideration of Admission/Observation Patient was admitted/placed on observation. Management of patient was discussed with the following: Hospitalist: Agrees to admit. I considered the following discharge prescriptions or medication management in the emergency department Medications were administered in the Emergency Department. See MAR. Care significantly affected by the following chronic conditions: Bipolar disorder, schizophrenia. Counseling: I had a detailed discussion with the patient and/or guardian regarding the historical points, exam findings, and any diagnostic results supporting the discharge/admit diagnosis, lab results, the need for further work-up and treatment in the hospital. Response to treatment: the patient's symptoms have mildly improved after treatment. 06/09 15:50 Order name: Acetaminophen; Complete Time: 17:52 rt 06/09 15:50 Order name: Basic Metabolic Panel; Complete Time: 17:52 rt 06/09 15:50 Order name: CBC with Diff; Complete Time: 17:52 rt 06/09 15:50 Order name: ETOH Level; Complete Time: 17:52 rt 06/09 15:50 Order name: Hepatic Function; Complete Time: 17:52 rt 06/09 15:50 Order name: PT-INR; Complete Time: 17:52 rt 06/09 15:50 Order name: Test, Urine rt 06/09 15:50 Order name: Ptt, Activated; Complete Time: 17:52 rt 06/09 15:50 Order name: Salicylate; Complete Time: 17:52 rt 06/09 15:50 Order name: Urinalysis w/ reflexes rt 06/09 15:50 Order name: Urine Drug Screen rt 06/09 19:14 Order name: Urinalysis w/ reflexes EDMS 06/09 19:14 Order name: CBC with Automated Diff EDMS 06/09 19:14 Order name: CBC with Automated Diff EDMS 06/09 19:14 Order name: Comprehensive Metabolic Panel EDMS 06/09 19:14 Order name: Comprehensive Metabolic Panel EDMS 06/09 19:14 Order name: Magnesium EDMS 06/09 19:14 Order name: Magnesium EDMS 06/09 19:14 Order name: Phosphorus EDMS 06/09 19:14 Order name: Phosphorus EDMS 06/09 15:50 Order name: EKG - Nurse/Tech; Complete Time: 16:12 rt 06/09 15:50 Order name: IV Saline Lock; Complete Time: 16:12 rt 06/09 15:50 Order name: Labs collected and sent; Complete Time: 16:12 rt 06/09 15:50 Order name: Suicide Precautions; Complete Time: 17:00 rt 06/09 15:50 Order name: Suicide Screening ([place]); Complete Time: 17:00 rt EC:15 Rate is 103 beats/min. Rhythm is regular, Sinus tachycardia with No ectopy. QRS [place] is rt Normal. NC interval is normal. QRS interval is normal. QT interval is normal. No Q waves. T waves are Normal. No ST changes noted. Interpreted by me. Administered Medications: 16:49 Drug: Actidose-Sorbitol PO Suspension 100 grams PO once Route: PO; ap3 17:00 Follow up: Response: Other ap3 Disposition Summary: 06/09/24 18:02 Hospitalization Ordered Notes: Hospitalization Status: Observation rt Provider: Selwyn Diego rt Location: Intensive Care Unit rt Condition: Fair rt Problem: new rt Symptoms: have improved rt Bed/Room Type: Standard rt Room Assignment: (06/09/24 19:42) [facility] Diagnosis - Intentional overdose of antipsychotics rt - Suicidal ideation rt Discharge Instructions: - Discharge Summary Sheet ap3 Forms: - SBAR form ap3 - Medication Reconciliation Form rt - Leadership Thank You Letter rt Signatures: Dispatcher [employer] EDNarcisa Franco RN RN Shamika Guerin RN RN ap3 Nicholas Duque MD MD rt Tania Burns [facility] Shamika Sheikh RN RN al5 Corrections: (The following items were deleted from the chart) 15:50 15:50 ACETAMINOPHEN+C.LAB.BRZ ordered. EDMS EDMS 15:50 15:50 BASIC METABOLIC PANEL+C.LAB.BRZ ordered. EDMS EDMS 15:50 15:50 CBC+H.LAB.BRZ ordered. EDMS EDMS 15:50 15:50 ETHANOL+C.LAB.BRZ ordered. EDMS EDMS 15:50 15:50 HEPATIC FUNCTION+C.LAB.BRZ ordered. EDMS EDMS 15:50 15:50 PROTIME (+INR)+COAG.LAB.BRZ ordered. EDMS EDMS 15:50 15:50 Test, Urine+UC.LAB.BRZ ordered. EDMS EDMS 15:50 15:50 PTT, ACTIVATED+COAG.LAB.BRZ ordered. EDMS EDMS 15:50 15:50 SALICYLATE+C.LAB.BRZ ordered. EDMS EDMS 15:50 15:50 Urinalysis+U.LAB.BRZ ordered. EDMS EDMS 15:50 15:50 URINE DRUG SCREEN+UC.LAB.BRZ ordered. EDMS EDMS 19:36 18:02 rt al5 19:36 19:36 8- al5 kmf 19:42 19:36 8- kmf f
--- NOTE | 2024-06-09 18:40 | P.HP ---
Certification for Inpatient Patient admitted to: Inpatient With expected LOS: >2 Midnights Practitioner: I am a practitioner with admitting privileges, knowledge of patient current condition, hospital course, and medical plan of care. Services: Services provided to patient in accordance with Admission requirements found in Title 42 Section 412.3 of the Code of Federal Regulations Patient History Date of Service: 06/09/24 Reason for admission: Overdose History of Present Illness: 39 yrs old Female with past medical history of bipolar disorder, schizophrenia, hypertension, hyperlipidemia who presents to the ER with overdosage, Patient did intentional overdose of trazodone, olanzapine, and haloperidol. Her multiple empty pill bottles, patient cannot describe exactly how many medication she took . She reports feeling drowsy. She states that she took this due to her being suicidal. Patient denies any chest pain or shortness of breath. No fever or chills. No nausea vomiting or diarrhea. Patient was assessed in the ER and was admitted for further management of drug overdosage. Poison control was consulted from the ER and recommended close monitoring and psych consult when medically cleared. Allergies No Known Allergies Allergy (Verified 06/09/24 19:21) Home medications list reviewed: Yes Home Medications: Trazodone 1 tab PO BEDTIME 06/20/11 Benztropine Mesylate 1 tab PO BEDTIME 10/13/16 Lorazepam 1 tab PO BID PRN 10/13/16 Paliperidone [Invega] 1 tab PO BEDTIME 10/13/16 Quetiapine Fumarate [Seroquel] 1 tab PO BEDTIME 10/13/16 Quetiapine Fumarate [Seroquel] 1 tab PO DAILY 10/13/16 Topiramate 1 tab PO BID 10/13/16 Venlafaxine HCl [Effexor] 1 tab PO BEDTIME 10/13/16 - Past Medical/Surgical History Diabetic: No Past Medical History: Reviewed- Non-Contributory -: Schizophrenia -: Bipolar disorder -: HTN -: Hyperlipedimia -: Schizoaffective disorder -: Personality disorder -: Tobacco abuse -: Obesity Past Surgical History: Reviewed- Non-Contributory -: Eye surgery -: History of PEG tube placement and removal Psychosocial/ Personal History: The patient is single. She has no children. She currently lives with her mother and father. She is dependent on her mother. - Family History Father -: Hypertension - Social History Smoking Status: Never smoker Alcohol use: No CD- Drugs: No Caffeine use: No Review of Systems 10-point ROS is otherwise unremarkable Physical Examination - Vital Signs Temperature: 97.8 F Blood Pressure: 132/68 Pulse: 78 Respirations: 18 Pulse Ox (%): 94 - Physical Exam General: Alert, Oriented x3, Cooperative, Obese HEENT: Atraumatic, Normocephalic Neck: Supple Respiratory: Clear to auscultation bilaterally, Normal air movement Cardiovascular: No edema, Regular rate/rhythm, Normal S1 S2 Capillary refill: <2 Seconds Gastrointestinal: Soft and benign, W/out hepatosplenomegaly Musculoskeletal: No clubbing Integumentary: No rashes, No tenderness/swelling Neurological: Normal speech, Normal strength at 5/5 x4 extr Lymphatics: No axilla or inguinal lymphadenopathy - Studies Laboratory Data (last 24 hrs) 06/09/24 06/09/24 06/09/24 15:53 15:53 15:53 WBC 15.50 H Hgb 13.2 Hct 38.4 Plt Count 409 H PT 9.7 INR 0.92 APTT 29.5 Sodium 137 Potassium 3.1 L BUN 12 Creatinine 0.86 Glucose 128 H Total Bilirubin 0.2 AST 19 ALT 26 Alkaline Phosphatase 146 H Assessment and Plan - Plan Drug overdosage Took multiple medications Does not know the quantity Monitor closely and commercial specialist closely for arrhythmias Electrolytes monitor replace accordingly IV hydration Monitor closely in ICU Poison control consult appreciated Will get the CMP CBC in a.m. Psych disorder Monitor closely Psych consult once clinically stable Suicidal ideation Need inpatient psych admission GI/DVT prophylaxis Advanced directive full code Discharge Plan: Psychiatry Plan to discharge in: 48 Hours - Advance Directives Does patient have a Living Will: No Does patient have a Durable POA for Healthcare: No - Code Status/Comfort Care Code Status: Full Code Time Spent Managing Pts Care (In Minutes): 49
[2024-06-09] MEDS ORDERED: ONDANSETRON 4 MG/2 ML VIAL IV PRN (19:09)
[2024-06-09] MEDS ORDERED: ACETAMINOPHEN 325 MG TABLET PO PRN (19:09)
[2024-06-09 19:18] LABS: Specific Gravity 1.007 (1.005-1.030)
[2024-06-09 19:21] LABS: Specific Gravity 1.007 (1.005-1.030); Sqamous Epithelial None Seen /HPF (None Seen); Urine Bacteria <20 /HPF (<20); Urine Bilirubin NEGATIVE (Negative); Urine Blood Negative (Negative); Urine Clarity Turbid (Clear); Urine Color Light-Yellow (Yellow); Urine Culture Reflex Order NOT NEEDED; Urine Glucose NEGATIVE (Negative); Urine Ketones NEGATIVE (Negative); Urine Microscopic Reflex YN ORDER UMIC; Urine Nitrite 2+ (Negative); Urine Protein 1+ (Negative); Urine RBC <5 /HPF (None Seen); Urine Urobilinogen Normal (Normal); Urine WBC <5 /HPF (<5); Urine WBC Clump Rare /HPF (None Seen); Urine Yeast (Budding) Trace /HPF (None Seen)
[2024-06-09 19:28] LABS: Barbiturates NEGATIVE (NEGATIVE); Benzodiazepines NEGATIVE (NEGATIVE); Cocaine NEGATIVE (NEGATIVE); METHAMPHETAM POSITIVE (NEGATIVE); Methadone NEGATIVE (NEGATIVE); Opiates NEGATIVE (NEGATIVE); Phencyclidine NEGATIVE (NEGATIVE); THC Cannibis NEGATIVE (NEGATIVE)
[2024-06-09] MEDS ORDERED: NA CHLORIDE 0.9% 1,000 ML ONE (19:30)
[2024-06-09] MEDS: NA CHLORIDE 0.9% 1,000 ML IV SCH (19:35)
[2024-06-09 19:49] VITALS: BMI 46.0
[2024-06-09 22:08] VITALS: TEMP 97.8
[2024-06-09 22:14] VITALS: O2SAT 98
--- NOTE | 2024-06-10 03:44 | P.DS ---
Admission Date: 06/09/24 Discharge Date: 06/10/24 Disposition: TRANSFR TO OTHER-PSY/CD/REHAB Discharge Condition: FAIR Reason for Admission: Overdose Brief History of Present Illness: 39 yrs old Female with past medical history of bipolar disorder, schizophrenia, hypertension, hyperlipidemia who presents to the ER with overdosage, Patient did intentional overdose of trazodone, olanzapine, and haloperidol. Her multiple empty pill bottles, patient cannot describe exactly how many medication she took . She reports feeling drowsy. She states that she took this due to her being suicidal. Patient denies any chest pain or shortness of breath. No fever or chills. No nausea vomiting or diarrhea. Patient was assessed in the ER and was admitted for further management of drug overdosage. Poison control was consulted from the ER and recommended close monitoring and psych consult when medically cleared. Hospital Course: Patient was monitored closely under telemetry. No arrhythmias noted. Denies an y chest pain or shortness of breath. Inpatient psych referral was done. Patient will be transferred to inpatient psych when bed available Vital Signs/Physical Exam: Temp Pulse Resp BP Pulse Ox 97.8 F 98 H 15 124/75 100 06/09/24 22:07 06/10/24 03:08 06/10/24 03:08 06/10/24 03:08 06/10/24 03:08 General: Alert, In no apparent distress, Oriented x3 HEENT: Atraumatic, Normocephalic Neck: Supple Respiratory: Clear to auscultation bilaterally, Normal air movement Cardiovascular: Regular rate/rhythm, Normal S1 S2 Capillary refill: <2 Seconds Gastrointestinal: Soft and benign, W/out hepatosplenomegaly Musculoskeletal: No clubbing Integumentary: No rashes Neurological: Other (Alert, Awake ) Laboratory Data at Discharge: WBC 15.50 thou/uL (4.3-10.9) H 06/09/24 15:53 Hgb 13.2 g/dL (12.0-15.0) 06/09/24 15:53 Hct 38.4 % (36.0-45.0) 06/09/24 15:53 Plt Count 409 thou/uL (152-406) H 06/09/24 15:53 PT 9.7 SECONDS (9.4-12.5) 06/09/24 15:53 INR 0.92 06/09/24 15:53 APTT 29.5 SECONDS (24.3-36.9) 06/09/24 15:53 Sodium 137 mEq/L (136-145) 06/09/24 15:53 Potassium 3.1 mEq/L (3.5-5.1) L 06/09/24 15:53 BUN 12 mg/dL (7-18) 06/09/24 15:53 Creatinine 0.86 mg/dL (0.55-1.02) 06/09/24 15:53 Glucose 128 mg/dL (74-106) H 06/09/24 15:53 Total Bilirubin 0.2 mg/dL (0.2-1.0) 06/09/24 15:53 AST 19 U/L (15-37) 06/09/24 15:53 ALT 26 U/L (13-56) 06/09/24 15:53 Alkaline Phosphatase 146 U/L (45-117) H 06/09/24 15:53 Home Medications: Trazodone 1 tab PO BEDTIME 06/20/11 Benztropine Mesylate 1 tab PO BEDTIME 10/13/16 Lorazepam 1 tab PO BID PRN 10/13/16 Paliperidone [Invega] 1 tab PO BEDTIME 10/13/16 Quetiapine Fumarate [Seroquel] 1 tab PO BEDTIME 10/13/16 Quetiapine Fumarate [Seroquel] 1 tab PO DAILY 10/13/16 Topiramate 1 tab PO BID 10/13/16 Venlafaxine HCl [Effexor] 1 tab PO BEDTIME 10/13/16 Diet: Regular Activity: Ad rui Followup: NONE,NONE [Primary Care Provider] - Time spent managing pt's care (in minutes): 38
[2024-06-10 04:31] VITALS: BP 121/78
--- NOTE | 2024-06-11 11:50 | EKG ---
Test Date: 2024-06-09 Test Time: 15:47:32 Hog Handler: ILYA MEASUREMENT RESULTS: Intervals: Rate: 103 [place]: 186 QRSD: 84 QT: 372 QTc: 487 [place]: P: 53 [place]: 186 QRS: 37 T: 38 INTERPRETIVE STATEMENTS: Sinus tachycardia Possible Left atrial enlargement Borderline ECG Compared to ECG 08/24/2022 23:00:41 Sinus rhythm no longer present First degree AV block no longer present Myocardial infarct finding no longer present Electronically Signed On 06-11-24 11:48:39 PLATFORM INSPECTOR by Shabbir Rodriguez
== END 2024-06-10 04:43 | DRG 918 ==
LOC: ER 15:41 → ERHOLD 19:09
PROVIDERS: ADMIT Family Medicine; ATTEND Hospitalist
DX: T43.592A Poisoning by other antipsychotics and neuroleptics, intentional self-harm, initial encounter (principal); R45.851 Suicidal ideations; Z68.42 Body mass index [BMI] 45.0-49.9, adult; E66.9 Obesity, unspecified; T43.212A Poisoning by selective serotonin and norepinephrine reuptake inhibitors, intentional self-harm, initial encounter; T43.4X2A Poisoning by butyrophenone and thiothixene neuroleptics, intentional self-harm, initial encounter; I10 Essential (primary) hypertension; E78.5 Hyperlipidemia, unspecified; F31.9 Bipolar disorder, unspecified; F20.9 Schizophrenia, unspecified
CPT/HCPCS: 36415; 80048; 80076; 80143; 80179; 80307; 81001; 81025; 82077; 85025; 85610; 85730; 93005; 99285; J7030